=== PATIENT | female | born 1985 | race Caucasian/White ===

== ENCOUNTER 2019-04-05 06:02 | Inpatient (IN) | payer OTHER ==
[2019-04-04 11:38] LABS: BASOPHILS ABSOLUTE AUTO 0.03 K/mm3 (0.00-0.23); BASOPHILS PERCENT AUTO 0 % (0-2); EOSINOPHILS ABSOLUTE AUTO 0.15 K/mm3 (0.00-0.68); EOSINOPHILS PERCENT AUTO 1 % (0-6); Hematocrit 31.2 % (33.0-51.0); Hemoglobin 9.8 g/dL (11.5-16.0); IMMATURE GRAN ABSOLUTE AUTO 0.14 K/mm3 (0.00-0.10); IMMATURE GRAN PERCENT AUTO 1 % (0-1); LYMPHOCYTES PERCENT AUTO 13 % (21-46); MONOCYTES ABSOLUTE AUTO 0.56 K/mm3 (0.16-1.47); MONOCYTES PERCENT AUTO 5 % (4-13); Mean Corpuscular HGB 27.8 pg (26.0-34.0); Mean Corpuscular HGB Conc 31.4 g/dL (31.5-36.5); Mean Corpuscular Volume 89 fL (80-100); Mean Platelet Volume 10.1 fL (9.1-12.4); NEUTROPHILS ABSOLUTE AUTO 9.44 K/mm3 (1.96-9.15); NEUTROPHILS PERCENT AUTO 79 % (41-73); Platelet Count 256 K/mm3 (150-400); RDW Coefficient Variation 13.2 % (11.7-14.2); RDW Standard Deviation 42.9 fL (35.1-46.3); Red Blood Cell Count 3.52 M/mm3 (3.80-5.20); White Blood Cell Count 11.92 K/mm3 (4.00-11.30)
[~2019-04-05] VITALS: Ht 160 cm; Wt 92.5 kg
[~2019-04-05 06:02] MED LIST: CLARITIN10 MG PO; HYDACE5 PO; IBUP800 PO; PROACE100 PO; RHINOCORT ALL8.43 ML; RXHYDACE PO; [UNRECOGNIZED DRUG - REMARK]
--- NOTE | 2019-04-05 08:28 | NUR ---
04/05/19 0828 Stephanie Warrenciyulia Anderson VIABLE MALE DELIVERED VIA REPEAT SECTION AT 0816 ON 04/05/19. VAC X1 PULL, NO POP OFFS WAS USED. PRESSURE OF VAC CONTROLLED BY TATUM LOVE AND PRESSURE REMAINED WNL (IN THE GREEN) THE ENTIRE TIME. CORD GASSES WERE GIVEN TO TATUM CANALES AND CORD BLOOD WAS GIVEN TO TATUM LOVE TO SEND TO LAB.
[2019-04-05 08:35] LABS: PCO2 Cord - Arterial 59.8 mmHg (40-50); pH Cord - Arterial 7.29 (7.28-7.35)
[2019-04-05 08:37] LABS: PCO2 Cord - Venous 45.8 mmHg (40-50); pH Umbilical Cord - Venous 7.37 (7.26-7.35)
[2019-04-05 08:39] LABS: PO2 Cord - Arterial < 12.0 mmHg (16-20)
[2019-04-06 05:58] LABS: BASOPHILS ABSOLUTE AUTO 0.03 K/mm3 (0.00-0.23); BASOPHILS PERCENT AUTO 0 % (0-2); EOSINOPHILS ABSOLUTE AUTO 0.12 K/mm3 (0.00-0.68); EOSINOPHILS PERCENT AUTO 1 % (0-6); Hematocrit 28.5 % (33.0-51.0); Hemoglobin 8.8 g/dL (11.5-16.0); IMMATURE GRAN ABSOLUTE AUTO 0.09 K/mm3 (0.00-0.10); IMMATURE GRAN PERCENT AUTO 1 % (0-1); LYMPHOCYTES ABSOLUTE AUTO 2.02 K/mm3 (0.84-5.20); LYMPHOCYTES PERCENT AUTO 16 % (21-46); MONOCYTES ABSOLUTE AUTO 0.71 K/mm3 (0.16-1.47); MONOCYTES PERCENT AUTO 6 % (4-13); Mean Corpuscular HGB 27.3 pg (26.0-34.0); Mean Corpuscular HGB Conc 30.9 g/dL (31.5-36.5); Mean Corpuscular Volume 89 fL (80-100); Mean Platelet Volume 10.2 fL (9.1-12.4); NEUTROPHILS ABSOLUTE AUTO 10.02 K/mm3 (1.96-9.15); NEUTROPHILS PERCENT AUTO 77 % (41-73); Platelet Count 249 K/mm3 (150-400); RDW Coefficient Variation 13.3 % (11.7-14.2); RDW Standard Deviation 43.5 fL (35.1-46.3); Red Blood Cell Count 3.22 M/mm3 (3.80-5.20); White Blood Cell Count 12.99 K/mm3 (4.00-11.30)
[2019-04-07] MEDS ORDERED: Percocet 5-3251 EACH PO (09:16)
[2019-04-07] MEDS ORDERED: IBUP800 PO (09:16)
--- NOTE | 2019-04-07 10:20 | NUR ---
DISCHARGE INSTRUCTIONS, WRITTEN AND VERBAL, GIVEN TO PT. ANSWERED ALL QUESTIONS AND CONCERNS. WRITTEN PRESCRIPTIONS GIVEN TO PT. ALL PERSONAL BELONGINGS RETURNED TO PT. PT IS DISCHARGED HOME, TO BE DRIVEN HOME BY FAITH.
== END 2019-04-07 10:45 | disposition home or self-care (01) | DRG 788 ==
LOC: BC 06:02
PROVIDERS: ADMIT Obstetrics & Gynecology
PROC: 6A550ZT Pheresis of Cord Blood Stem Cells, Single (ICD-10-PCS; 2019-04-05)
PROC: 10D00Z1 Extraction of Products of Conception, Low, Open Approach (ICD-10-PCS; principal; 2019-04-05 07:30)
DX: O34.211 Maternal care for low transverse scar from previous cesarean delivery (principal); Z30.2 Encounter for sterilization; O99.52 Diseases of the respiratory system complicating childbirth; J30.2 Other seasonal allergic rhinitis; Z3A.39 39 weeks gestation of pregnancy; Z37.0 Single live birth
CPT/HCPCS: 36415; 82803; 85025; 86850; 86900; 86901; J0690; J1885; J2250; J2274; J2405; J2590; J2765; J3010; J7120

== ENCOUNTER 2020-11-11 08:57 | Emergency (ER) | payer OTHER ==
[~2020-11-11] VITALS: Ht 160 cm; Wt 85.3 kg
[~2020-11-11 08:57] MED LIST changes: +Percocet 5-3251 EACH PO
[2020-11-11] MEDS ORDERED: BIRTH CONTROL PO (09:07)
[2020-11-11 09:52] LABS: BASOPHILS ABSOLUTE AUTO 0.03 K/mm3 (0.00-0.23); BASOPHILS PERCENT AUTO 0 % (0-2); EOSINOPHILS ABSOLUTE AUTO 0.02 K/mm3 (0.00-0.68); EOSINOPHILS PERCENT AUTO 0 % (0-6); Hematocrit 42.1 % (33.0-51.0); IMMATURE GRAN ABSOLUTE AUTO 0.03 K/mm3 (0.00-0.10); IMMATURE GRAN PERCENT AUTO 0 % (0-1); LYMPHOCYTES ABSOLUTE AUTO 0.73 K/mm3 (0.84-5.20); LYMPHOCYTES PERCENT AUTO 9 % (21-46); MONOCYTES ABSOLUTE AUTO 0.19 K/mm3 (0.16-1.47); MONOCYTES PERCENT AUTO 2 % (4-13); Mean Corpuscular HGB 30.5 pg (26.0-34.0); Mean Corpuscular HGB Conc 33.3 g/dL (31.5-36.5); Mean Corpuscular Volume 92 fL (80-100); Mean Platelet Volume 10.2 fL (9.1-12.4); NEUTROPHILS ABSOLUTE AUTO 7.16 K/mm3 (1.96-9.15); NEUTROPHILS PERCENT AUTO 88 % (41-73); Platelet Count 292 K/mm3 (150-400); RDW Standard Deviation 40.5 fL (35.1-46.3); Red Blood Cell Count 4.59 M/mm3 (3.80-5.20); White Blood Cell Count 8.16 K/mm3 (4.00-11.30)
[2020-11-11 10:07] LABS: Alanine Aminotransfer (ALT/SGP 15 U/L (12-78); Albumin, Blood 4.1 g/dL (3.4-5.0); Albumin/Globulin Ratio 1.1 (0.8-1.8); Alk Phos 67 U/L (50-136); Anion Gap 10 mmol/L (6-16); Aspartate Aminotrans (AST/SGOT 10 U/L (12-37); Bilirubin, Total 0.5 mg/dL (0.1-1.0); Blood Urea Nitrogen 14 mg/dL (8-24); Bun/Creatinine Ratio 19.4 (12.0-20.0); CO2, Blood 23 mmol/L (21-32); Chloride, Blood 107 mmol/L (98-108); Creatinine, Blood 0.72 mg/dL (0.40-1.00); Globulin, Blood 3.8 g/dL (2.2-4.0); Glomerular Filtration Rate >60 (60-); Glucose, Blood 103 mg/dL (70-99); Potassium, Blood 3.7 mmol/L (3.5-5.5); Sodium, Blood 140 mmol/L (136-145); Total Protein, Blood 7.9 g/dL (6.4-8.2)
[2020-11-11 11:06] LABS: Source, Urine Voided
[2020-11-11] MEDS ORDERED: ONDA4 PO (11:08)
[2020-11-11 11:17] LABS: Bilirubin, Urine Neg (Neg); Blood, Urine 1+ (Neg); Glucose Qualitative, Urine Neg (Neg); Ketones, Urine 3+ (Neg); Leukocyte Esterase, Urine Neg (Neg); Nitrite, Urine Neg (Neg); Protein, Urine Neg (Neg); Urobilinogen, Urine NORM (Normal)
[2020-11-11 11:51] LABS: Appearance, Urine Clear (Clear); Color, Urine Yellow (P-Yellow)
[2020-11-11 11:52] LABS: Bacteria Few /hpf; Red Blood Cells, Urine 0-2 /hpf (0-2); Squamous Epithelial Cells Rare /hpf (Few); White Blood Cells, Urine 0-2 /hpf (0-5)
== END 2020-11-11 12:05 | disposition home or self-care (01) ==
LOC: ER 08:57
PROVIDERS: Emergency Medicine
DX: R10.84 Generalized abdominal pain (principal); R11.2 Nausea with vomiting, unspecified; Z88.6 Allergy status to analgesic agent; Z88.5 Allergy status to narcotic agent
CPT/HCPCS: 36415; 74177; 80053; 81001; 83690; 85025; 96374; 99285-25; J2405; Q9967

== ENCOUNTER → 2022-07-28 | Outpatient (CLI) | payer OTHER ==
[~2022-07-28] MED LIST changes: +BIRTH CONTROL PO; +ONDA4 PO
== END ==
LOC: LAB 12:00 → LAB SHORT 12:00
DX: H60.392 Other infective otitis externa, left ear (principal); L30.9 Dermatitis, unspecified
CPT/HCPCS: 87070; 87077; 87147; 87186; 87205